=== PATIENT | male | born 1975 | race Two or more races ===

== ENCOUNTER 2019-09-04 07:56 | Emergency (ER) | payer SELFPAY ==
[~2019-09-04] VITALS: Ht 182.9 cm; Wt 95.3 kg
[2019-09-04 08:35] VITALS: BP 140/76
[2019-09-04] MEDS: SODIUM CHLORIDE 0.9% 1,000 ML IVB ONE (09:07)
[2019-09-04] MEDS: LORazepam 2MG/ML-1ML VIAL IV ONE (09:07)
[2019-09-04 09:13] LABS: Basophils # (auto) 0.1 uL; Basophils % (auto) 0.6 % (0.0-2.0); Eosinophils # (auto) 0 uL; Hematocrit 45.3 % (41.0-53.0); Hemoglobin 15.2 g/dL (13.5-17.5); Lymphocytes # (auto) 1.5 uL; Lymphocytes % (auto) 10.8 % (10.0-50.0); Mean Corpuscular Hemoglobin 30.7 pg (28.0-32.0); Mean Corpuscular Hgb Conc. 33.6 g/dL (32.0-36.0); Mean Corpuscular Volume 91.5 fL (80.0-100.0); Monocytes # (auto) 0.3 uL; Neutrophils # (auto) 12.3 uL; Neutrophils % (auto) 86.6 % (37.0-80.0); Nucleated Red Blood Cells % 0.1 %; Platelet Count (auto) 333 10^3/uL (140-450); Red Blood Cells 4.95 10^6/uL (4.5-5.90); Red Cell Distribution Width 14.2 % (11.8-14.3); White Blood Cell 14.3 10^3/uL (4.4-10.8)
[2019-09-04 09:25] LABS: Albumin 4.5 g/dL (3.4-5.0); Amylase 35 U/L (25-115); Anion Gap 9 (5-15); Blood Urea Nitrogen 20 mg/dL (7-18); Calcium 9.9 mg/dL (8.5-10.1); Carbon Dioxide 22 mmol/L (21-32); Chloride 108 mmol/L (98-107); Glucose 130 mg/dL (74-106); Lipase 59 U/L (73-393); Potassium 3.9 mmol/L (3.5-5.1); Sodium 139 mmol/L (136-145)
[2019-09-04 09:31] LABS: Alanine Aminotransferase 36 U/L (16-61); Alkaline Phosphatase 89 U/L (45-117); Aspartate Aminotransferase 16 U/L (15-37); BUN/Creatinine Ratio 17.1; Bilirubin, Total 0.6 mg/dL (0.2-1.0); GFR African American 87 mL/min; GFR Non-African American 72 mL/min; Total Protein 8.4 g/dL (6.4-8.2)
== END 2019-09-04 11:01 | disposition left against medical advice (07) ==
LOC: ER 07:56
DX: F11.23 Opioid dependence with withdrawal (principal); F17.210 Nicotine dependence, cigarettes, uncomplicated; R11.2 Nausea with vomiting, unspecified; Z53.29 Procedure and treatment not carried out because of patient's decision for other reasons
CPT/HCPCS: 36415; 80053; 82150; 83690; 83735; 84484; 85025; 96361; 96374; 99284; J2060; J7030